=== PATIENT | female | born 1975 | race Caucasian/White ===

== ENCOUNTER 2018-04-23 05:30 | Day surgery (SDC) | payer OTHER | END 2018-04-23 12:25 | disposition home or self-care (01) | LOC: AMB-ENDOS 05:30 | DX: K64.8 Other hemorrhoids (principal); Z12.11 Encounter for screening for malignant neoplasm of colon ==

== ENCOUNTER 2020-02-08 08:05 | Day surgery (SDC) | payer OTHER | END 2020-02-08 13:00 | disposition home or self-care (01) | LOC: AMB-ENDOS 08:05 | PROVIDERS: ATTEND Colon & Rectal Surgery | DX: K62.89 Other specified diseases of anus and rectum (principal); K64.8 Other hemorrhoids; Z12.11 Encounter for screening for malignant neoplasm of colon ==

== ENCOUNTER 2020-02-08 11:50 | Outpatient (CLI) | payer OTHER | END 2020-02-08 12:06 | disposition home or self-care (01) | LOC: TOM 11:50 | PROVIDERS: ATTEND Colon & Rectal Surgery | DX: Z12.11 Encounter for screening for malignant neoplasm of colon (principal); K76.0 Fatty (change of) liver, not elsewhere classified; K57.90 Diverticulosis of intestine, part unspecified, without perforation or abscess without bleeding; R19.5 Other fecal abnormalities ==

== ENCOUNTER 2022-10-15 06:09 | Day surgery (SDC) | payer OTHER | END 2022-10-15 11:40 | disposition home or self-care (01) | LOC: AMB-ENDOS 06:09 | PROVIDERS: ATTEND Colon & Rectal Surgery | DX: R19.5 Other fecal abnormalities (principal); K57.30 Diverticulosis of large intestine without perforation or abscess without bleeding; K64.8 Other hemorrhoids; Z20.822 Contact with and (suspected) exposure to COVID-19 ==